=== PATIENT | female | born 1995 | race Caucasian/White ===

== ENCOUNTER 2024-05-18 18:39 | Emergency (ER) | payer BC ==
[~2024-05-18 18:39] MED LIST: Iopamidol-370 76% 500 ML MDV (1 ML CHARGE) ONE
[2024-05-18 19:06] LABS: #Basophils 0.04 10x3/uL (0.0-0.2); %Basophils 0.4 % (0.0-1.0); %Eosinophils 0.5 % (0.0-10.0); %Lymphocytes 5.6 % (21.0-51.0); %Monocytes 5.3 % (0.0-10.0); %Neutrophils 87.9 % (42.0-75.0); Hematocrit 41.9 % (36.0-47.0); Hemoglobin 14.4 g/dL (12.0-16.0); Mean Corpuscular HGB CONC 34.4 g/dL (32.0-36.0); Mean Corpuscular Volume 81.4 fL (78.0-98.0); Mean Platelet Volume 10.1 fL (7.4-10.4); Platelet Count 239 10x3/uL (130-400); RBC Distribution Width 12.1 % (11.5-14.5); Red Blood Cell (RBC) Count 5.15 mill/uL (4.20-5.40)
[2024-05-18 19:28] LABS: ALT (SGPT) 9 U/L (8-55); AST (SGOT) 12 U/L (5-34); Alkaline Phosphatase 83 U/L (40-110); Anion Gap 15 mmol/L (10-20); BUN (Urea Nitrogen) 18 mg/dL (7.0-18.7); Bilirubin, Total 0.9 mg/dL (0.2-1.2); Calc. Creatinine Clearance 0 mL/min (70-130); Calcium 8.9 mg/dL (7.8-10.44); Carbon Dioxide 20 mmol/L (22-29); Chloride 106 mmol/L (98-107); Estimated GFR 115; Globulin 3.1 g/dL (2.4-3.5); Glucose 90 mg/dL (70-105); Potassium 3.8 mmol/L (3.5-5.1); Protein, Total 7.1 g/dL (6.0-8.3); Sodium 137 mmol/L (136-145)
[2024-05-18] MEDS ORDERED: Ondansetron PF 4 MG/2 ML Vial ONE (19:51)
[2024-05-18] MEDS ORDERED: Dicyclomine 20 MG TAB ONE (19:52)
[2024-05-18] MEDS ORDERED: Ketorolac Tromethamine 30 MG (1 mL) VIAL ONE (19:52)
[2024-05-18 20:03] LABS: Bilirubin Negative (Negative); Blood, Urine Negative (Negative); CAUTI Indications for Culture Dysuria,urgency,freq; Clarity Clear (Clear); Glucose, Urine (Dipstick) Normal (Negative); Ketone, Urine 40 mg/dL (Negative); Leukocyte Negative Leu/uL (Negative); Nitrite Negative (Negative); Protein, Urine (Dipstick) Negative (Neg-Trace); RBC/HPF 0-3 HPF (0-3); Specific Gravity, Urine 1.031 (1.002-1.036); Urobilinogen Normal mg/dL (Less than 2); WBC/HPF 0-3 HPF (0-3)
[2024-05-18 20:13] LABS: Phosphorus 3.1 mg/dL (2.3-4.7)
[2024-05-18 20:14] LABS: Lipase 20 U/L (8-78); Magnesium 1.8 mg/dL (1.6-2.6)
[2024-05-18 20:16] LABS: BHCG - Serum Negative (NEGATIVE); Pregs Control Background? CLEAR/WHITE (CLR/WHITE); Pregs Control Bar Appear? YES (CONTROL BAR)
[2024-05-18 20:17] LABS: Bacteria/HPF Rare-Few HPF (None Seen)
[2024-05-18 20:18] LABS: Urine Culture Reflex No No
== END 2024-05-18 23:04 | disposition home or self-care (01) ==
LOC: ERS 18:39
DX: N83.12 Corpus luteum cyst of left ovary (principal); K52.9 Noninfective gastroenteritis and colitis, unspecified; Z55.6 Problems related to health literacy
CPT/HCPCS: 36415; 74177; 76705; 80053; 81001; 83605; 83690; 83735; 84100; 84703; 85025; 96374; 96375; J1885; J2405; Q9967